=== PATIENT | female | born 1985 | race Caucasian/White ===

== ENCOUNTER → 2017-01-16 | Outpatient (CLI) | payer SELFPAY ==
[~2017-01-16] MED LIST: GADOBUTROL 10mMol/10ml INJECTION IV ONE; NO KNOWN MEDICATIONS; SALINE FLUSH 10ml SYRINGE ONE
--- NOTE | 2017-01-16 14:37 | DI ---
Indication: ITS.REASON: M84.375A STRESS FRACTURE OF NAVICULAR BONE OF LEFT FOOT; M87.9 PROCEDURE: MRI FOOT LEFT W/WO CONTRAST: Encounter: Initial Comparison: None Technique: Multiplanar multisequence MR imaging of the left foot was performed with and without contrast. Contrast: 6 mL Gadavist Findings: There is some loss of fat suppression in the area of the toes. This is reportedly not in the area of clinical concern. There is a normal appearance of the visualized foot flexor and extensor tendons. The visualized Achilles and peroneal tendons are also intact. No fluid collections appreciated. There is marrow signal abnormality seen within the navicular. This shows partial collapse with significant T1 hypointense signal seen throughout the bone. There is edema within the bone on the T2-weighted sequences and some enhancement on the postcontrast sequences. There is subtle signal abnormality within the adjacent talar head laterally, probably due to reactive edema. Small osteophytes are present indicating early talonavicular degenerative change. The remaining bone marrow signal intensity is normal. The ankle ligaments appear intact. 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 .
== END ==
LOC: IMA 12:25
PROVIDERS: ATTEND Nurse Practitioner Family
DX: M87.9 Osteonecrosis, unspecified (principal); M84.375A Stress fracture, left foot, initial encounter for fracture